=== PATIENT | male | born 1960 | race Caucasian/White ===

== ENCOUNTER 2017-08-12 20:12 | Emergency (ER) | payer BC ==
[2017-08-12] MEDS ORDERED: Amoxicillin 500 MG Cap PO ONE (20:13)
[2017-08-12 20:19] VITALS: BP 144/79
[2017-08-12] MEDS ORDERED: Amoxicillin 500 MG Cap ONE (20:30)
--- NOTE | 2017-08-12 20:33 | EDM.PDOC ---
ED HPI GENERAL MEDICAL PROBLEM - General Chief Complaint: ENT Problem Stated Complaint: EAR PAIN [id number] Time Seen by Provider: 08/12/17 20:25 Source of Information: Reports: Patient, Family History Limitations: Reports: No Limitations - History of Present Illness INITIAL COMMENTS - FREE TEXT/NARRATIVE: pain to right ear yesterday worse this prabha, sharp pressure, felt pop earlier and some relief. No fever or chills. area around ear swollen Right Ear Pain Score (Numeric/FACES): 8 - Related Data Allergies Allergy/AdvReac Type Severity Reaction Status Date / Time No Known Allergies Allergy Verified 07/29/15 06:08 Home Meds: Home Meds Amoxicillin [Take Home: Amoxicillin 500 MG, 2 Cap Pack] 4 cap PO ASDIRECTED PRN 07/29/15 [History] Aspirin [Adult Low Dose Aspirin EC] 81 mg PO DAILY 07/29/15 [History] Minocycline [Minocin] 1 tab PO BID PRN 07/29/15 [History] Multivitamin/Iron/Folic Acid [Centrum Complete Multivit] 1 tab PO DAILY [History] Simvastatin [Zocor] 1 tab PO DAILY 07/29/15 [History] Past Medical History Cardiovascular History: Reports: High Cholesterol Respiratory History: Reports: None Gastrointestinal History: Reports: None Genitourinary History: Reports: None Musculoskeletal History: Reports: None Neurological History: Reports: None Psychiatric History: Reports: None Endocrine/Metabolic History: Reports: None Hematologic History: Reports: None Immunologic History: Reports: None Dermatologic History: Reports: Other (See Below) 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; FOLLICULITIS - SCALP HAIRLINE - Infectious Disease History Infectious Disease History: Reports: Chicken Pox - Past Surgical History HEENT Surgical History: Reports: Other (See Below) Other HEENT Surgeries/Procedures: ADENOIDECTOMY Cardiovascular Surgical History: Reports: Other (See Below) Other Cardiovascular Surgeries/Procedures: AVR valve replacement Respiratory Surgical History: Reports: None GI Surgical History: Reports: None Male Surgical History: Reports: None Endocrine Surgical History: Reports: None Musculoskeletal Surgical History: Reports: Other (See Below) Other Musculoskeletal Surgeries/Procedures:: L4-5 DISC REPAIR; L5-S1 HERNIATE DISK REPAIR Oncologic Surgical History: Reports: Other (See Below) Other Oncologic Surgeries/Procedures: SKIN BIOPSY Social & Family History - Tobacco Use Smoking Status *Q: Never Smoker Second Hand Smoke Exposure: No - Caffeine Use Caffeine Use: Reports: Coffee - Recreational Drug Use Recreational Drug Use: No ED ROS ENT - Review of Systems Review Of Systems: See Below Constitutional: Denies: Fever, Chills HEENT: Reports: Ear Pain (right) Respiratory: Reports: No Symptoms Cardiovascular: Reports: No Symptoms GI/Abdominal: Reports: No Symptoms Musculoskeletal: Reports: No Symptoms Skin: Reports: No Symptoms Neurological: Reports: No Symptoms Psychiatric: Reports: No Symptoms ED EXAM, ENT - Physical Exam Exam: See Below Exam Limited By: No Limitations General Appearance: Alert, Mild Distress Eye Exam: Bilateral Eye: EOMI Ears: Normal External Exam, Normal TMs (left), Auricular Tenderness, Mastoid Tenderness, TM Erythema, TM Fluid. No: Canal Discharge Nose: Normal Inspection Mouth/Throat: Normal Inspection. No: Tonsillar Erythema Head: Atraumatic, Normocephalic Neck: Lymphadenopathy (R) Respiratory/Chest: No Respiratory Distress, Lungs Clear Back: Normal Inspection Extremities: Normal Inspection, Non-Tender Neurological: Alert, Oriented Psychiatric: Normal Affect Skin: Warm, Dry Course - Vital Signs Last Recorded V/S: Last Vital Signs Temp 98.0 F 08/12/17 20:18 Pulse 96 08/12/17 20:18 Resp 18 08/12/17 20:18 BP 144/79 H 08/12/17 20:18 Pulse Ox 98 08/12/17 20:18 - Orders/Labs/Meds Meds: Medications Discontinued Medications Generic Name Dose Route Start Last Admin Trade Name Abdulaziz PRN Reason Stop Dose Admin Amoxicillin Confirm 08/12/17 20:30 08/13/17 01:00 Amoxil Administered 08/12/17 20:31 Not Given Dose 1,500 mg .ROUTE .STK-MED ONE Departure - Departure Time of Disposition: 20:32 Disposition: Home, Self-Care 01 Condition: Good Clinical Impression: Otitis media Qualifiers: Otitis media type: serous Chronicity: acute Laterality: right Recurrence: not specified as recurrent Qualified Code(s): H65.01 - Acute serous otitis media, right ear - Discharge Information Instructions: Otitis Media, Adult, [id number]-Mvve Forms: ED Department Discharge Additional Instructions: amoxicillin 500mg one three times daily for one week tylenol or ibuprofen for discomfort follow up as needed
== END 2017-08-12 20:39 | disposition home or self-care (01) ==
LOC: DL.ED 20:12
DX: H65.01 Acute serous otitis media, right ear (principal); Z79.82 Long term (current) use of aspirin; Z79.899 Other long term (current) drug therapy
CPT/HCPCS: 99282; A9270-GY

== ENCOUNTER 2020-04-10 13:09 | Emergency (ER) | payer BC ==
--- NOTE | 2020-04-10 13:49 | CR ---
EXAMINATION: Chest 1V Frontal SEX: Male AGE: 59 years CLINICAL HISTORY: 59-year-old male with cardiac disease and now CHEST PAIN. No previous exams immediately available for comparison. 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 Normal cardiac silhouette (size and configuration). No pulmonary vascular congestion, cephalization of flow, alveolar edema, interstitial [place] B lines, or dependent pleural effusion. No lung mass or hilar lymphadenopathy. No focal lobar infiltrate, atelectasis or collapse. No pneumothorax or pneumomediastinum. AP view bony thorax unremarkable. CONCLUSION: No acute cardiopulmonary abnormality.
[2020-04-10 14:12] LABS: ANION GAP 13.6 mEq/L (7-13); CHLORIDE,CL 103 mmol/L (98-107); SODIUM,NA 140 mmol/L (136-145)
[2020-04-10 16:20] VITALS: BP 117/72; PULSE 82
--- NOTE | 2020-04-10 18:59 | EDM.PDOC ---
ED HPI GENERAL MEDICAL PROBLEM - General Chief Complaint: Chest Pain Stated Complaint: COLLAPSED SHAKY CHEST PAIN Time Seen by Provider: 04/10/20 13:40 Source of Information: Reports: Patient History Limitations: Reports: No Limitations - History of Present Illness INITIAL COMMENTS - FREE TEXT/NARRATIVE: This 59 yo male patient reports to the ED with an episode of chest pain and lightheadedness that started today about 1200. 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 The patient reports after the lightheadedness he started to have some chest pain. The patient went inside to cool down and shower, but continued to feel lightheaded. The patient has a history of a AV valve replacement. Onset: Today Location: Reports: Chest Quality: Reports: Ache, Dull Severity: Moderate Improves with: Reports: None Worsens with: Reports: None Context: Reports: Other Associated Symptoms: Reports: Chest Pain, Syncope - Related Data Allergies Allergy/AdvReac Type Severity Reaction Status Date / Time No Known Allergies Allergy Verified 04/10/20 13:40 Home Meds: Home Meds Amoxicillin [Take Home: Amoxicillin 500 MG, 2 Cap Pack] 4 cap PO ASDIRECTED PRN 07/29/15 [History] Aspirin [Adult Low Dose Aspirin EC] 81 mg PO DAILY 07/29/15 [History] Minocycline [Minocin] 1 tab PO BID PRN 07/29/15 [History] Multivitamin/Iron/Folic Acid [Centrum Complete Multivit] 1 tab PO DAILY 07/29/15 [History] Simvastatin [Zocor] 1 tab PO DAILY 07/29/15 [History] Past Medical History Cardiovascular History: Reports: High Cholesterol Respiratory History: Reports: None Gastrointestinal History: Reports: None Genitourinary History: Reports: None Musculoskeletal History: Reports: None Neurological History: Reports: None Psychiatric History: Reports: None Endocrine/Metabolic History: Reports: None Hematologic History: Reports: None Immunologic History: Reports: None Dermatologic History: Reports: Other (See Below) 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; FOLLICULITIS - SCALP HAIRLINE - Infectious Disease History Infectious Disease History: Reports: Chicken Pox - Past Surgical History HEENT Surgical History: Reports: Other (See Below) Other HEENT Surgeries/Procedures: ADENOIDECTOMY Cardiovascular Surgical History: Reports: Other (See Below) Other Cardiovascular Surgeries/Procedures: AVR valve replacement Respiratory Surgical History: Reports: None GI Surgical History: Reports: None Male Surgical History: Reports: None Endocrine Surgical History: Reports: None Musculoskeletal Surgical History: Reports: Other (See Below) Other Musculoskeletal Surgeries/Procedures:: L4-5 DISC REPAIR; L5-S1 HERNIATE DISK REPAIR Oncologic Surgical History: Reports: Other (See Below) Other Oncologic Surgeries/Procedures: SKIN BIOPSY Social & Family History - Tobacco Use Smoking Status *Q: Never Smoker - Caffeine Use Caffeine Use: Reports: None - Recreational Drug Use Recreational Drug Use: No ED ROS GENERAL - Review of Systems Review Of Systems: Comprehensive ROS is negative, except as noted in HPI. ED EXAM, GENERAL - Physical Exam Exam: See Below Exam Limited By: No Limitations General Appearance: Alert, WD/WN, Mild Distress Eye Exam: Bilateral Eye: EOMI, Normal Inspection, PERRL Ears: Normal External Exam, Normal Canal, Hearing Grossly Normal, Normal TMs Nose: Normal Inspection, Normal Mucosa, No Blood Throat/Mouth: Normal Inspection, Normal Lips, Normal Teeth, Normal Gums, Normal Oropharynx, Normal Voice, No Airway Compromise Head: Atraumatic, Normocephalic Neck: Normal Inspection, Supple, Non-Tender, Full Range of Motion Respiratory/Chest: No Respiratory Distress, Lungs Clear, Normal Breath Sounds, No Accessory Muscle Use, Chest Non-Tender Cardiovascular: Normal Peripheral Pulses, Regular Rate, Rhythm, No Edema, No Gallop, No JVD, No Murmur, No Rub GI/Abdominal: Normal Bowel Sounds, Soft, Non-Tender, No Organomegaly, No Distention, No Abnormal Bruit, No Mass (Male) Exam: Deferred Rectal (Males) Exam: Deferred Back Exam: Normal Inspection, Full Range of Motion, NT Extremities: Normal Inspection, Normal Range of Motion, Non-Tender, Normal Capillary Refill, No Pedal Edema Neurological: Alert, Oriented, CN II-XII Intact, Normal Cognition, Normal Gait, Normal Reflexes, No Motor/Sensory Deficits Psychiatric: Normal Affect, Normal Mood Skin Exam: Warm, Dry, Intact, Normal Color, No Rash Lymphatic: No Adenopathy Course - Vital Signs Last Recorded V/S: Last Vital Signs Temp 36.9 C 04/10/20 16:19 Pulse 82 04/10/20 16:19 Resp 18 04/10/20 16:19 BP 117/72 04/10/20 16:19 Pulse Ox 100 04/10/20 16:19 - Orders/Labs/Meds Labs: Laboratory Tests 04/10/20 04/10/20 04/10/20 Range/Units 13:30 13:30 13:30 WBC 5.1 (5.0-10.0) 10^3/uL RBC 5.17 (4.6-6.2) 10^6/uL Hgb 14.9 (14.0-18.0) g/dL Hct 42.1 (40.0-54.0) % MCV 81.4 (80-100) fL MCH 28.8 (27.0-34.0) pg MCHC 35.4 H (33.0-35.0) g/dL Plt Count 135 L (150-450) 10^3/uL Neut % (Auto) 58.8 (42.2-75.2) % Lymph % (Auto) 30.8 (20.5-50.1) % [place] % (Auto) 8.8 H (2-8) % Eos % (Auto) 1.0 (1.0-3.0) % Baso % (Auto) 0.6 (0.0-1.0) % Sodium 140 (136-145) mmol/L Potassium 3.6 (3.5-5.1) mmol/L Chloride 103 (98-107) mmol/L Carbon Dioxide 27 (21-32) mmol/L Anion Gap 13.6 H (7-13) mEq/L BUN 26 H (7-18) mg/dL Creatinine 1.17 (0.70-1.30) mg/dL Est Cr Clr Drug Dosing 77.78 mL/min Estimated GFR (MDRD) > 60 BUN/Creatinine Ratio 22.2 (No establ ref range) Glucose 111 H (74-99) mg/dL POC Glucose 105 (70-105) mg/dl Calcium 9.1 (8.5-10.1) mg/dL Total Bilirubin 0.9 (0.2-1.0) mg/dL AST 23 (15-37) U/L ALT 62 (16-63) U/L Alkaline Phosphatase 65 (46-116) U/L Troponin I < 0.017 (0.000-0.056) ng/mL Total Protein 7.5 (6.4-8.2) g/dL Albumin 4.4 (3.4-5.0) g/dL Globulin 3.1 Albumin/Globulin Ratio 1.4 // Range/Units 18:10 WBC (5.0-10.0) 10^3/uL RBC (4.6-6.2) 10^6/uL Hgb (14.0-18.0) g/dL Hct (40.0-54.0) % MCV (80-100) fL MCH (27.0-34.0) pg MCHC (33.0-35.0) g/dL Plt Count (150-450) 10^3/uL Neut % (Auto) (42.2-75.2) % Lymph % (Auto) (20.5-50.1) % [place] % (Auto) (2-8) % Eos % (Auto) (1.0-3.0) % Baso % (Auto) (0.0-1.0) % Sodium (136-145) mmol/L Potassium (3.5-5.1) mmol/L Chloride (98-107) mmol/L Carbon Dioxide (21-32) mmol/L Anion Gap (7-13) mEq/L BUN (7-18) mg/dL Creatinine (0.70-1.30) mg/dL Est Cr Clr Drug Dosing mL/min Estimated GFR (MDRD) BUN/Creatinine Ratio (No establ ref range) Glucose (74-99) mg/dL POC Glucose (70-105) mg/dl Calcium (8.5-10.1) mg/dL Total Bilirubin (0.2-1.0) mg/dL AST (15-37) U/L ALT (16-63) U/L Alkaline Phosphatase (46-116) U/L Troponin I < 0.017 (0.000-0.056) ng/mL Total Protein (6.4-8.2) g/dL Albumin (3.4-5.0) g/dL Globulin Albumin/Globulin Ratio - Re-Assessments/Exams Free Text/Narrative Re-Assessment/Exam: The patient was advised of the initial lab and EKG results while in the ED. The patient was placed on extended ED for a repeat troponin. Once the repeat troponin results were received, the patient was advised of the results. The patient reported no return of chest pain or lightheadedness throughout the stay. Departure - Departure Time of Disposition: 18:59 Disposition: Home, Self-Care 01 Condition: Fair Clinical Impression: Nonspecific chest pain Heat exhaustion Qualifiers: Encounter type: initial encounter Qualified Code(s): T67.5XXA - Heat exhaustion, unspecified, initial encounter Instructions: Heat Exhaustion, Nonspecific Chest Pain, Adult, [id number] Forms: ED Department Discharge Care Plan Goals: The patient was advised of the examination, lab and EKG results during the visit. The patient was encouraged to limit his exposure to heat and humidity. If the patient has any additional symptoms or concerns, the patient should either return to the emergency department or visit his primary care facility. Sepsis Event Note (ED) - Evaluation Sepsis Screening Result: No Definite Risk
== END 2020-04-10 19:30 | disposition home or self-care (01) ==
LOC: DL.ED 13:09
DX: T67.5XXA Heat exhaustion, unspecified, initial encounter (principal); R07.9 Chest pain, unspecified; E78.00 Pure hypercholesterolemia, unspecified; Z79.899 Other long term (current) drug therapy
CPT/HCPCS: 36415; 71045; 80053; 82962; 84484; 85025; 93005; 99285-25

== ENCOUNTER 2023-10-27 04:59 | Emergency (ER) | payer BC ==
[2023-10-27 05:11] LABS: BASOPHILS PERCENT AUTO 0.4 % (0.0-1.0); EOSINOPHILS PERCENT AUTO 1.6 % (1.0-3.0); HEMATOCRIT 42.2 % (40.0-54.0); HEMOGLOBIN 14.8 g/dL (14.0-18.0); LYMPHOCYTES PERCENT AUTO 19.7 % (20.5-50.1); MEAN CORPUSCULAR HGB CONC 35.1 g/dL (33.0-35.0); MEAN CORPUSCULAR VOLUME 82.6 fL (80-100); MONOCYTES PERCENT AUTO 10.3 % (2-8); PLATELET COUNT,PLT 124 10^3/uL (150-450); RED BLOOD CELL COUNT 5.11 10^6/uL (4.6-6.2); WHITE BLOOD CELL COUNT,WBC 5.1 10^3/uL (5.0-10.0)
[2023-10-27] MEDS: Aspirin 81 MG Tab.Chew PO ONE (05:15)
[2023-10-27 05:34] LABS: A/G RATIO 1.3; BILIRUBIN TOTAL 0.8 mg/dL (0.2-1.0); CALCIUM 8.9 mg/dL (8.5-10.1); EST CRCL DRUG DOSING (CG) 86.56 mL/min; MAGNESIUM 1.9 mg/dL (1.8-2.4); PROTEIN TOTAL,TP 7.1 g/dL (6.4-8.2)
[2023-10-27 07:43] LABS: PROTHROMBIN TIME 10.4 SEC (9.0-12.0); PTT,PARTIAL THROMBOPLSTIN TIME 25.4 SEC (22.0-34.0)
[2023-10-27 09:07] VITALS: BP 113/84; PULSE 64
== END 2023-10-27 08:55 | disposition home or self-care (01) ==
LOC: DL.ED 04:59
DX: R00.2 Palpitations (principal); R00.8 Other abnormalities of heart beat; E11.9 Type 2 diabetes mellitus without complications; E78.00 Pure hypercholesterolemia, unspecified; Z79.82 Long term (current) use of aspirin; Z79.899 Other long term (current) drug therapy
CPT/HCPCS: 36415; 71045; 80053; 83735; 83880; 84484; 85025; 85610; 85730; 93005; 93010; 99284; 99285; A9270